=== PATIENT | male | born 2000 | race Caucasian/White ===

== ENCOUNTER 2022-12-25 02:58 | Emergency (ER) | payer SELFPAY ==
[~2022-12-25] VITALS: Ht 175.3 cm; Wt 190.0 kg
[2022-12-25 03:13] VITALS: TEMP 98.9; O2SAT 100
[2022-12-25] MEDS ORDERED: AMOXICILLIN/POTASSIUM CLAVULANATE 875/125MG TAB PO STA (05:20)
[2022-12-25 05:30] VITALS: BP 169/102; PULSE 104; RESP 18
[2022-12-25] MEDS ORDERED: TETANUS, DIPHTHERIA, PERTUSSIS VAC/PF 0.5ML (>10YR OLD) IM ONE (05:30)
[2022-12-25] MEDS ORDERED: KETOROLAC 15MG/ML VIAL IM ONE (05:30)
[2022-12-25] MEDS ORDERED: AMOX1TAB16 MT (06:21)
[2022-12-25] MEDS ORDERED: NAPR-681 MT (06:21)
== END 2022-12-25 07:39 | disposition home or self-care (01) ==
LOC: ER 02:58
DX: S16.1XXA Strain of muscle, fascia and tendon at neck level, initial encounter (principal); I10 Essential (primary) hypertension; W54.0XXA Bitten by dog, initial encounter; Y93.89 Activity, other specified; Y92.89 Other specified places as the place of occurrence of the external cause; Y99.8 Other external cause status
CPT/HCPCS: 99284; 90715; 90471; 96372; J1885